=== PATIENT | male | born 1980 | race Caucasian/White ===

== ENCOUNTER 2017-03-04 08:36 | Emergency (ER) | payer OTHER ==
[~2017-03-04] VITALS: Ht 190.5 cm; Wt 113.4 kg
--- NOTE | ~2017-03-04 | EKG ---
[address] [place] [address] ELECTROCARDIOGRAM REPORT Name: ZAIRA BERGER [id number] Admission: 03/04/17 Attend Phys: Discharge: Date of : 76 Report #: [id number] THIS REPORT FOR: //name// [facility] ED Test Date: 2017-03-04 Test Time: 09:16:43 Pat Name: ZAIRA BERGER Department: Room: Gender: Outside Cutter: : 1980 Requested By: Rao Hercules Order Number: [id number] MD: Franck Christensen Measurements Intervals [place] Rate: 105 P: 59 WA: 173 QRS: 85 QRSD: 168 T: -31 QT: 371 QTc: 491 Interpretive Statements Sinus tachycardia Right bundle branch block No previous ECG available for comparison Electronically Signed On 03-04-2017 10:57:29 CDT by Franck Christensen [email or web address] <ELECTRONICALLY SIGNED> By: Franck Christensen MD, [facility] 03/04/17 1057 0916 09 Franck Christensen MD, FACC /EPI
[~2017-03-04 08:36] MED LIST: NORFLEX100 MG PO; PREDNISONE 10 M10 MG PO; TRAMADOL 50 MG50 MG PO
[2017-03-04 09:34] LABS: ABSOLUTE NEUTROPHILS 6.4 thou/uL (1.4-8.2); BASOPHILS 0.8 % (0.0-2.0); EOSINOPHILS 1.2 % (0.0-3.0); HEMATOCRIT 45.8 % (42.0-52.0); HEMOGLOBIN 15.3 gm/dL (14.0-18.0); LYMPHOCYTES 18.6 % (24.0-44.0); MANUAL DIFF NO; MCHC 33.3 g/dL (28.0-37.0); MCV 98.9 fL (80.0-100.0); MONOCYTES 11.3 % (1.0-8.0); PLATELET COUNT 211 thou/uL (150-400); POLYS 68.1 % (36.0-66.0); RBC 4.63 mil/uL (4.50-6.00); RDW 14.6 % (10.5-14.5); WBC 9.3 thou/uL (4.0-11.0)
[2017-03-04 09:44] LABS: ANION GAP 13 mmol/L (7-16); BUN 16 mg/dL (7-18); CALCIUM 9.7 mg/dL (8.5-10.1); CHLORIDE 102 mmol/L (98-107); CO2 23 mmol/L (21-32); CREATININE 0.8 mg/dL (0.7-1.3); GLUCOSE 95 mg/dL (74-106); POTASSIUM 4.3 mmol/L (3.5-5.1); SODIUM 138 mmol/L (136-145)
[2017-03-04 09:53] LABS: TROPONIN-I < 0.04 ng/mL (<0.04-0.07)
[2017-03-04 11:54] LABS: APTT 28.2 Seconds (24.5-32.8); PROTIME 10.3 Seconds (9.3-11.4)
[2017-03-04] MEDS ORDERED: ELIQUIS5 MG PO (13:03)
[2017-03-04] MEDS ORDERED: SENOKOT-S1 TA1 PO (13:35)
[2017-03-04] MEDS ORDERED: NORCO 5-325 TA1 EACH PO (13:35)
[2017-03-06 03:10] LABS: ANTITHROMBIN III 98 % (75-135)
== END 2017-03-04 13:41 | disposition home or self-care (01) ==
LOC: ER 08:36
PROVIDERS: Emergency Medicine
DX: I82.401 Acute embolism and thrombosis of unspecified deep veins of right lower extremity (principal); F17.210 Nicotine dependence, cigarettes, uncomplicated; F10.99 Alcohol use, unspecified with unspecified alcohol-induced disorder; M54.30 Sciatica, unspecified side